=== PATIENT | male | born 1980 | race Two or more races ===

== ENCOUNTER 2019-04-21 17:00 | Emergency (ER) | payer OTHER ==
[2019-04-21 17:14] VITALS: BP 130/94; PULSE 75
--- NOTE | 2019-04-21 17:52 | EDM.PDOC ---
ED HPI GENERAL MEDICAL PROBLEM - General Chief Complaint: General Stated Complaint: FELL AND HIT HIS HEAD Time Seen by Provider: 04/21/19 17:32 Source of Information: Reports: Patient History Limitations: Reports: No Limitations - History of Present Illness INITIAL COMMENTS - FREE TEXT/NARRATIVE: Patient presents with small cut on upper forehead from falling at work at 3:00 this afternoon. He was on some work equipment and fell through a belt hitting his head on a pipe. He thinks he fell about 6 feet. No LOC, dizziness, N/V, vision changes. He says the left upper back to left posterior neck are sore. This happened at work. Tetanus needs update. 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 Frontal Head Pain Score (Numeric/FACES): 4 - Related Data Allergies Allergy/AdvReac Type Severity Reaction Status Date / Time No Known Drug Allergies Allergy Cannot Verified 04/21/19 17:13 Remember Home Meds: Home Meds ALPRAZolam [Alprazolam] 0.25 mg PO TID PRN 11/22/15 [History] Past Medical History HEENT History: Reports: Impaired Vision Musculoskeletal History: Reports: Back Pain, Chronic Other Musculoskeletal History: Herniated disc in back Psychiatric History: Reports: Anxiety, Panic Attack - Infectious Disease History Infectious Disease History: Reports: Chicken Pox, Hepatitis A, Influenza - Past Surgical History Head Surgeries/Procedures: Reports: None Social & Family History - Family History Family Medical History: Noncontributory ED ROS GENERAL - Review of Systems Review Of Systems: See Below Constitutional: Denies: Fever, Weakness HEENT: Denies: Ear Pain, Throat Pain, Vision Change Respiratory: Denies: Shortness of Breath, Cough Cardiovascular: Denies: Lightheadedness, Syncope GI/Abdominal: Denies: Abdominal Pain, Vomiting : Denies: Incontinence Musculoskeletal: Reports: Neck Pain (not midline), Shoulder Pain (left shoulder hit when he fell too but is okay with full ROM). Denies: Back Pain Skin: Denies: Cyanosis, Jaundice, Mottled, Pallor, Diaphoresis Neurological: Denies: Confusion, Dizziness, Headache, Numbness, Seizure, Syncope , Tingling, Trouble Speaking, Difficulty Walking, Weakness Psychiatric: Reports: Anxiety (he takes an anxiolytic). Denies: Agitation, Confusion Hematologic/Lymphatic: Denies: Easy Bleeding ED EXAM, GENERAL - Physical Exam Exam: See Below Exam Limited By: No Limitations General Appearance: Alert, WD/WN, No Apparent Distress Eye Exam: Bilateral Eye: EOMI, Normal Inspection, PERRL Ears: Normal External Exam, Normal Canal, Hearing Grossly Normal, Normal TMs Nose: Normal Inspection, No Blood Throat/Mouth: Normal Inspection, Normal Lips, Normal Voice, No Airway Compromise Head: Normocephalic, Other (superficial horizontal laceration at midline of upper forehead just anterior to hairline. It is not gaping and doesn't pull apart with moderate effort on exam) Neck: Normal Inspection, Supple, Non-Tender, Full Range of Motion, Tender Lateral (left). No: Tender Midline Respiratory/Chest: No Respiratory Distress, Lungs Clear, Normal Breath Sounds, No Accessory Muscle Use Cardiovascular: Regular Rate, Rhythm, No Murmur GI/Abdominal: Normal Bowel Sounds, Soft, Non-Tender, No Organomegaly, No Distention Back Exam: Normal Inspection, Full Range of Motion Extremities: Normal Inspection, Normal Range of Motion, Non-Tender, No Pedal Edema Neurological: Alert, Oriented, CN II-XII Intact, Normal Cognition, No Motor/ Sensory Deficits Psychiatric: Normal Affect, Normal Mood Skin Exam: Warm, Dry, Intact (except CC), Normal Color, No Rash ED GENERAL MEDICAL PROCEDURES - Laceration/Wound Repair Upper Midline Forehead Lac/wound length in cm: 3 Appearance: Superficial, Linear, Clean Distal NVT: Neuro & Vascular Intact Skin Prep: Chlorhexidine (Hibiciens) Exploration/Debridement/Repair: Wound Explored Closed with: Dermabond Tetanus Status Addressed: Yes Complications: No Course - Vital Signs Last Recorded V/S: Last Vital Signs Temp 97.5 F 04/21/19 17:07 Pulse 75 04/21/19 17:07 Resp 16 04/21/19 17:07 BP 130/94 H 04/21/19 17:07 Pulse Ox 96 04/21/19 17:07 - Orders/Labs/Meds Orders: Active Orders 24 hr Category Date Time Status Vaccines to be Administered [RC] PER UNIT ROUTINE Care 04/21/19 17:18 Active Meds: Medications Discontinued Medications Generic Name Dose Route Start Last Admin Trade Name Freq PRN Reason Stop Dose Admin Diphtheria/Tetanus/Acell Pertussis 0.5 ml 04/21/19 17:18 Adacel IM 04/21/19 17:19 .ONCE ONE - Re-Assessments/Exams Free Text/Narrative Re-Assessment/Exam: 04/21/19 18:17 Discussed findings and treatment plan with patient and his . Wound was cleaned and closed with Dermabond as in procedure note. Patient tolerated the procedure well and was discharged to home in stable condition. 04/21/19 18:21 He doesn't think he needs a note or specific restrictions for work. Departure - Departure Time of Disposition: 18:14 Disposition: Home, Self-Care 01 Condition: Good Clinical Impression: Laceration of forehead Qualifiers: Encounter type: initial encounter Qualified Code(s): S01.81XA - Laceration without foreign body of other part of head, initial encounter Neck muscle strain Qualifiers: Encounter type: initial encounter Qualified Code(s): S16.1XXA - Strain of muscle, fascia and tendon at neck level, initial encounter - Discharge Information Instructions: Stitches, [place], or Adhesive Wound Closure Referrals: Daina Beckford PA-C [Primary Care Provider] - Additional Instructions: 1. Keep wound clean and dry except for showering. 2. If the glue starts to loosen you can place steri-strips to secure the wound. 3. Follow up with your PCP if any problems. 4. Return to ER as needed. Sepsis Event Note - Evaluation Sepsis Screening Result: No Definite Risk - Focused Exam Vital Signs: Vital Signs Temp Pulse Resp BP Pulse Ox 04/21/19 17:07 97.5 F 75 16 130/94 H 96 Date Exam was Performed: 04/21/19 Time Exam was Performed: 17:46 - My Orders Last 24 Hours: My Active Orders 04/21/19 17:18 Vaccines to be Administered [RC] PER UNIT ROUTINE - Assessment/Plan Last 24 Hours: My Active Orders 04/21/19 17:18 Vaccines to be Administered [RC] PER UNIT ROUTINE
[2019-04-21] MEDS: Diphtheria,Pertussis(Acell),Tetanus Vaccine 0.5 ML SDV IM ONE (17:57)
== END 2019-04-21 18:20 | disposition home or self-care (01) ==
LOC: KA.ED 17:00
DX: S01.81XA Laceration without foreign body of other part of head, initial encounter (principal); F41.9 Anxiety disorder, unspecified; Z79.899 Other long term (current) drug therapy; Z23 Encounter for immunization; W31.9XXA Contact with unspecified machinery, initial encounter; Y92.89 Other specified places as the place of occurrence of the external cause; Y99.0 Civilian activity done for income or pay
CPT/HCPCS: 12013; 90471; 90715; 99282

== ENCOUNTER 2021-04-29 12:30 | Emergency (ER) | payer OTHER ==
[2021-04-29 12:54] VITALS: BP 145/85; PULSE 98
[2021-04-29] MEDS ORDERED: Bacitracin/Neomycin/Polymyxin B Oint 0.9 GM U/D Packet TOP ONE (13:00)
== END 2021-04-29 13:15 | disposition home or self-care (01) ==
LOC: KA.ED 12:30
DX: S61.314A Laceration without foreign body of right ring finger with damage to nail, initial encounter (principal); W26.8XXA Contact with other sharp object(s), not elsewhere classified, initial encounter
CPT/HCPCS: 64450; 99282-25

== ENCOUNTER 2021-05-13 09:46 | Emergency (ER) | payer SELFPAY ==
[2021-05-13] MEDS ORDERED: Sodium Chloride 0.9% 10 ML Syringe FLUSH PRN (09:57)
[2021-05-13] MEDS ORDERED: LORazepam 2 MG/ML SDV IVPUSH ONE (09:59)
[2021-05-13 10:33] LABS: ANION GAP 13.4 mmol/L (5-15); CHLORIDE,CL 100 mmol/L (98-107); SODIUM,NA 135 mmol/L (136-145)
[2021-05-13 11:44] VITALS: BP 143/90; PULSE 80
== END 2021-05-13 11:20 | disposition home or self-care (01) ==
LOC: KA.ED 09:46
DX: F41.9 Anxiety disorder, unspecified (principal); I10 Essential (primary) hypertension; Z79.899 Other long term (current) drug therapy
CPT/HCPCS: 36415; 71046; 80053; 85025; 93005; 93010; 96374; 99284; 99284-25; J2060

== ENCOUNTER 2023-10-21 15:52 | Emergency (ER) | payer MEDICAID ==
[2023-10-21 16:18] VITALS: BP 143/81; PULSE 100
[2023-10-21 16:25] LABS: BASOPHILS ABSOLUTE AUTO 0.04 10^3/uL (0.00-0.10); BASOPHILS PERCENT AUTO 0.4 % (0.0-1.0); EOSINOPHILS ABSOLUTE AUTO 0.13 10^3/uL (0.10-0.30); EOSINOPHILS PERCENT AUTO 1.2 % (1.0-3.0); HEMATOCRIT 46.2 % (40.0-52.0); HEMOGLOBIN 15.1 g/dL (13.0-17.0); IMMATURE GRAN ABSOLUTE AUTO 0.07 10^3/uL (0.00-0.50); IMMATURE GRAN PERCENT AUTO 0.6 % (0.0-5.0); LYMPHOCYTES ABSOLUTE AUTO 2.52 10^3/uL (1.00-4.00); LYMPHOCYTES PERCENT AUTO 23.1 % (20.0-40.0); MEAN CORPUSCULAR HEMOGLOBIN 28.9 pg (27.0-31.0); MEAN CORPUSCULAR HGB CONC 32.7 g/dL (32.0-36.0); MEAN CORPUSCULAR VOLUME 88.5 fL (82.0-92.0); MEAN PLATELET VOLUME 9.1 fL (7.4-10.4); MONOCYTES ABSOLUTE AUTO 0.89 10^3/uL (0.10-0.80); MONOCYTES PERCENT AUTO 8.2 % (2.0-8.0); NEUTROPHILS ABSOLUTE AUTO 7.25 10^3/uL (2.50-7.00); NEUTROPHILS PERCENT AUTO 66.5 % (50.0-70.0); PLATELET COUNT,PLT 301 10^3/uL (150-400); RED BLOOD CELL COUNT 5.22 10^6/uL (4.50-6.00)
[2023-10-21 16:43] LABS: ALANINE AMINOTRANSFERASE,ALT 29 U/L (14-63); ALBUMIN 3.57 g/dL (3.40-5.00); ALKALINE PHOSPHATASE 46 U/L (46-116); ANION GAP 9.9 mmol/L (5-15); ASPARTATE AMNIOTRANSFERASE,AST 14 U/L (15-37); BILIRUBIN TOTAL 0.3 mg/dL (0.2-1.0); BLOOD UREA NITROGEN,BUN 13 mg/dL (7-18); CARBON DIOXIDE,CO2 33.1 mmol/L (21.0-32.0); CHLORIDE,CL 100 mmol/L (98-107); CREATININE 0.94 mg/dL (0.51-1.17); EST CRCL DRUG DOSING (CG) 98.52 mL/min; GLUCOSE RANDOM 113 mg/dL (70-140); SODIUM,NA 139 mmol/L (136-145)
[2023-10-21 16:44] LABS: ESTIMATED GFR 104 mL/min (>=60); ETHANOL BLOOD MEDICAL < 3 mg/dL (NOT DETECTED)
[2023-10-21 16:45] LABS: ACETAMINOPHEN < 0.0 ug/mL (10.0-30.0)
[2023-10-21 16:47] LABS: METHAMPHETAMINES SCREEN, URINE POSITIVE (NEGATIVE); THC SCREEN,URINE 50 NG/ML POSITIVE (NEGATIVE)
[2023-10-21 16:48] LABS: AMPHETAMINES SCREEN, URINE POSITIVE (NEGATIVE)
[2023-10-21 16:49] LABS: BARBITURATE SCREEN,URINE NEGATIVE (NEGATIVE); BENZODIAZEPINES SCREEN,URINE NEGATIVE (NEGATIVE); COCAINE METABOLITES,URINE NEGATIVE (NEGATIVE); METHADONE SCREEN, URINE NEGATIVE (NEGATIVE); OXYCODONE SCREEN,URINE NEGATIVE (NEGATIVE); PCP SCREEN,URINE NEGATIVE (NEGATIVE); TCA SCREEN,URINE NEGATIVE (NEGATIVE)
[2023-10-21] MEDS: LORazepam 0.5 MG Tab PO ONE (19:37)
[2023-10-21] MEDS: Lisinopril 10 MG Tab PO ONE (19:38)
== END 2023-10-21 21:48 ==
LOC: KA.ED 15:52
DX: R45.851 Suicidal ideations (principal); F32.A Depression, unspecified; R82.5 Elevated urine levels of drugs, medicaments and biological substances; Z79.899 Other long term (current) drug therapy
CPT/HCPCS: 36415; 80053; 80143; 80305-QW; 80307; 84484; 85025; 99285; A9270-GY